=== PATIENT | female | born 1955 | race Caucasian/White ===

== ENCOUNTER → 2024-02-18 15:38 | Outpatient (REF) | payer MEDICARE, OTHER, SELFPAY | LOC: RAD 15:38 | PROVIDERS: ATTENDING PHYSICIAN Nurse Practitioner | DX: M54.50 Low back pain, unspecified (principal) | CPT/HCPCS: 72110 ==

== ENCOUNTER → 2024-03-26 19:03 | Outpatient (REF) | payer MEDICARE, OTHER, SELFPAY | LOC: MRI 19:03 | PROVIDERS: ATTENDING PHYSICIAN Family Medicine | DX: R42 Dizziness and giddiness (principal); R26.89 Other abnormalities of gait and mobility | CPT/HCPCS: 70551 ==

== ENCOUNTER → 2024-06-10 10:57 | Outpatient (REF) | payer MEDICARE, OTHER, SELFPAY | LOC: RCS 10:57 | PROVIDERS: ATTENDING PHYSICIAN Family Medicine; FAMILY PHYSICIAN Internal Medicine; REFERRING PHYSICIAN Internal Medicine Cardiovascular Disease | DX: R00.2 Palpitations (principal) | CPT/HCPCS: 93225; 93226 ==

== ENCOUNTER → 2024-07-01 15:26 | Outpatient (REF) | payer MEDICARE, OTHER, SELFPAY | LOC: PAVMRI 15:26 | PROVIDERS: ATTENDING PHYSICIAN Family Medicine; OTHER PHYSICIAN Internal Medicine; OTHER PHYSICIAN Neurological Surgery | DX: M54.41 Lumbago with sciatica, right side (principal) | CPT/HCPCS: 72148 ==

== ENCOUNTER → 2024-08-06 10:18 | Outpatient (REF) | payer MEDICARE, OTHER, SELFPAY | LOC: RAD 10:18 | PROVIDERS: ATTENDING PHYSICIAN Internal Medicine | DX: N28.1 Cyst of kidney, acquired (principal) | CPT/HCPCS: 76770 ==

== ENCOUNTER → 2024-10-05 17:02 | Outpatient (REF) | payer MEDICARE, OTHER, SELFPAY | LOC: PAVMRI 17:02 | PROVIDERS: ATTENDING PHYSICIAN Neurological Surgery; FAMILY PHYSICIAN Internal Medicine; REFERRING PHYSICIAN Internal Medicine Cardiovascular Disease | DX: R29.898 Other symptoms and signs involving the musculoskeletal system (principal) | CPT/HCPCS: 72146 ==

== ENCOUNTER → 2024-10-21 17:44 | Outpatient (REF) | payer MEDICARE, OTHER, SELFPAY | LOC: PAVMRI 17:44 | PROVIDERS: ATTENDING PHYSICIAN Neurological Surgery; FAMILY PHYSICIAN Internal Medicine | DX: R29.898 Other symptoms and signs involving the musculoskeletal system (principal) | CPT/HCPCS: 72141 ==

== ENCOUNTER → 2024-11-03 11:28 | Outpatient (REF) | payer MEDICARE, OTHER, SELFPAY | LOC: RAD 11:28 | PROVIDERS: ATTENDING PHYSICIAN Podiatrist Foot & Ankle Surgery; FAMILY PHYSICIAN Internal Medicine | DX: M14.671 Charcot's joint, right ankle and foot (principal) | CPT/HCPCS: 73630 ==

== ENCOUNTER → 2024-11-08 18:20 | Outpatient (REF) | payer MEDICARE, OTHER, SELFPAY | LOC: MRI 18:20 | PROVIDERS: ATTENDING PHYSICIAN Podiatrist; FAMILY PHYSICIAN Internal Medicine | DX: M14.672 Charcot's joint, left ankle and foot (principal) | CPT/HCPCS: 73718; 73721 ==

== ENCOUNTER → 2024-11-17 11:00 | Outpatient (REF) | payer MEDICARE, OTHER, SELFPAY | LOC: DHSLP 11:00 | PROVIDERS: ATTENDING PHYSICIAN Internal Medicine Critical Care Medicine; FAMILY PHYSICIAN Internal Medicine | DX: G47.30 Sleep apnea, unspecified (principal); R06.83 Snoring | CPT/HCPCS: 95800 ==

== ENCOUNTER → 2024-12-08 11:39 | Outpatient (REF) | payer MEDICARE, OTHER, SELFPAY | LOC: RAD 11:39 | PROVIDERS: ATTENDING PHYSICIAN Podiatrist Foot & Ankle Surgery; FAMILY PHYSICIAN Internal Medicine; REFERRING PHYSICIAN Podiatrist | DX: M79.671 Pain in right foot (principal) | CPT/HCPCS: 73630 ==

== ENCOUNTER → 2025-01-18 13:00 | Outpatient (REF) | payer MEDICARE, OTHER, SELFPAY ==
--- NOTE | 2025-01-18 14:00 | CARDSERVLU ---
Echocardiogram with Lumason completed after protocol screening completed. Allergies verified.
Patent IV site: __Rt AC_
IV site flushed with 0.9% NaCl pre and post administration.
Diluted bolus method utilized to enhance visualization of ventricular marrero.
Total volume given: __4.0 mL
Patient tolerated all procedures well without complications.
#22 kay placed Rt AC. Lumason given. INT d/c'd. dsg applied. No bleeding noted.
== END ==
LOC: RCS 13:00
PROVIDERS: ATTENDING PHYSICIAN Internal Medicine Cardiovascular Disease; FAMILY PHYSICIAN Internal Medicine
DX: R06.09 Other forms of dyspnea (principal)
CPT/HCPCS: 93306; Q9950

== ENCOUNTER → 2025-01-21 11:40 | Outpatient (REF) | payer MEDICARE, OTHER, SELFPAY | LOC: WDC 11:40 | PROVIDERS: ATTENDING PHYSICIAN Internal Medicine | DX: Z12.31 Encounter for screening mammogram for malignant neoplasm of breast (principal) | CPT/HCPCS: 77063; 77067 ==

== ENCOUNTER → 2025-02-09 14:33 | Outpatient (REF) | payer MEDICARE, OTHER, SELFPAY | LOC: DHSLP 14:33 | PROVIDERS: ATTENDING PHYSICIAN Internal Medicine Critical Care Medicine; FAMILY PHYSICIAN Internal Medicine | DX: G47.33 Obstructive sleep apnea (adult) (pediatric) (principal); R09.02 Hypoxemia | CPT/HCPCS: 95810 ==

== ENCOUNTER → 2025-02-10 13:21 | Outpatient (REF) | payer MEDICARE, OTHER, SELFPAY | LOC: RAD 13:21 | PROVIDERS: ATTENDING PHYSICIAN Internal Medicine | DX: M25.511 Pain in right shoulder (principal); Z98.890 Other specified postprocedural states | CPT/HCPCS: 73030; 73060 ==

== ENCOUNTER → 2025-03-29 14:38 | Outpatient (REF) | payer MEDICARE, OTHER, SELFPAY | LOC: RAD 14:38 | PROVIDERS: ATTENDING PHYSICIAN Podiatrist Foot & Ankle Surgery; FAMILY PHYSICIAN Internal Medicine | DX: S92.401A Displaced unspecified fracture of right great toe, initial encounter for closed fracture (principal); M14.671 Charcot's joint, right ankle and foot; E11.621 Type 2 diabetes mellitus with foot ulcer; L97.529 Non-pressure chronic ulcer of other part of left foot with unspecified severity; M14.672 Charcot's joint, left ankle and foot; M20.12 Hallux valgus (acquired), left foot; M20.32 Hallux varus (acquired), left foot | CPT/HCPCS: 73630 ==

== ENCOUNTER → 2025-05-16 13:14 | Outpatient (REF) | payer MEDICARE, OTHER, SELFPAY | LOC: EMG 13:14 | PROVIDERS: ATTENDING PHYSICIAN Neurological Surgery; FAMILY PHYSICIAN Internal Medicine | DX: R29.898 Other symptoms and signs involving the musculoskeletal system (principal); R20.0 Anesthesia of skin | CPT/HCPCS: 95886; 95913 ==

== ENCOUNTER 2025-07-04 07:54 | Inpatient (IN) | payer MEDICARE, OTHER, SELFPAY ==
[2025-07-03 12:03] VITALS: BP 177/98
[2025-07-03 13:26] VITALS: BMI 41.4
[2025-07-03 13:44] LABS: Hematocrit 37.7 % (37.0-47.0); Hemoglobin 12.5 g/dL (12.0-16.0); Mean Corp Hgb Conc. 33.2 g/dL (33.0-37.0); Mean Corpuscular Volume 83.4 fL (81.0-99.0); Nucleated Red Blood Cells % 0 %; Platelet Count 235 10^3/uL (130-400); Red Cell Dist. Width 15.2 % (11.5-14.5)
[2025-07-03 14:00] VITALS: BP 187/86
[2025-07-03 14:08] LABS: ALT (SGPT) 26 U/L (0-35); AST (SGOT) 31 U/L (14-36); Albumin 4.2 g/dl (3.5-5.0); Alkaline Phosphatase 94 U/L (38-126); Blood Urea Nitrogen 6 mg/dl (7-17); Calcium 9.6 mg/dl (8.4-10.2); Carbon Dioxide 30 mmol/L (22-30); Chloride 104 mmol/L (98-107); Estimated Creatinine Clearance 108 ml/min; Glucose 101 mg/dl (70-99); Potassium 4.3 mmol/L (3.5-5.1); Sodium 140 mmol/L (135-145); Total Protein 6.9 g/dl (6.3-8.2); eGFR > 60.00
--- NOTE | 2025-07-03 14:11 | ED.GENMED ---
History of Present Illness
General
Chief Complaint: Skin Problem
Source: patient
Time Seen by Provider: 07/03/25 13:25
History of Present Illness
History of Present Illness:
Note:
CHIEF COMPLAINT(S)
Left foot pain and blister formation.
HISTORY OF PRESENT ILLNESS
The patient is a 70-year-old female with a history of diabetes who presents with concerns regarding her left foot. She had reconstructive surgery on the foot and ankle, including correction of hammertoes and removal of a callus, performed by
Shannon, with a surgery date of February 22. The patient reports persistent issues with the alignment of her toe, causing it to rub against her footwear, leading to recurrent blisters and callus formation. Last night, she visited urgent care where a
physician expressed concerns about a potential water blister, attempting to express fluid. The underlying issue seems aggravated by the way the patient walks, which sustains the toes down position. Dr. Ortega advised her to visit the emergency room
due to the risk of infection given her diabetic status. She notes past management of similar toe issues involved cleansing and application of ointments.
PAST MEDICAL AND SURGICAL HISTORY
The patient has a history of diabetes and underwent foot and ankle reconstructive surgery on the left side, including hammertoe correction and callus removal.
CHRONIC MEDICAL CONDITIONS SIGNIFICANTLY AFFECTING CARE
- Diabetes mellitus
SOCIAL DETERMINANTS AFFECTING HEALTH
The patient experiences challenges related to healthcare access, having to consider traveling to [place] for follow-up with her surgeon, Dr. Garcia, whom she will not see until August.
ALLERGIES
Neurontin and latex.
MEDICATIONS
- Metformin: twice daily
- Trulicity: once a week
- Gabapentin: taken at night for neuropathy
REVIEW OF SYSTEMS
- Integumentary: Presence of callus and blister on the left foot.
- Musculoskeletal: Issues related to toe alignment post-surgery.
- Endocrine: Managed diabetes mellitus.
PHYSICAL EXAM
General: Alert, no acute distress.
Skin: Warm, dry. Ecchymotic changes around the callus and the distal end of the 1st digit on the L foot, with a small amount of redness. Small skin ulcer distal aspect of the left first digit.
Head: Normocephalic, atraumatic.
Neck: Supple, trachea midline.
Eyes, Ears, Nose, Mouth and Throat: Oral mucosa moist.
Cardiovascular: Normal peripheral perfusion, no edema.
Respiratory: Respirations non-labored.
Gastrointestinal: Abdomen nondistended.
Back: Normal range of motion, normal alignment.
Musculoskeletal: Normal range of motion, normal strength.
Neurological: Alert and oriented to person, place, time, and situation. No focal deficit noted.
Psychiatric: Cooperative, appropriate mood and affect.
PROBLEM LIST
Acute Problems:
- Left foot blister and ulcer
- Potential infection risk due to diabetes
Chronic Problems:
- Diabetes mellitus
PLAN
- Initiate antibiotics due to potential infection of the left foot.
- Evaluate perfusion and monitor for signs of worsening infection.
- Follow up with [facility] hospice for potential further surgical correction or ongoing management.
DIFFERENTIAL DIAGNOSIS
The Differential Diagnosis includes, in no particular order and is not limited to:
1. Diabetic foot ulcer
2. Localized soft tissue infection (cellulitis)
3. Peripheral vascular disease
4. Neuropathy-related ulceration
5. Callus-related blister formation
6. Foot deformity-related skin breakdown
7. Hammertoe-related irritation
8. Osteomyelitis
9. Chronic calcaneal bursitis
10. Tinea pedis (athlete�s foot) with secondary infection
Past History
Past History
ED Past Medical History: Arrthythmia (SVT,), HTN, Hypercholesterolemia, NIDDM and Other (Diverticulitis, Bilateral fractured arms)
ED Past Surgical History: Cardiac (Ablation) and Other (Back surgery)
Social History
Tobacco: Former smoker
Alcohol: Occasional
Personal:
Living: alone
Phy Exam
Physical Exam
Physical Exam:
.
Course
Orders/Labs/Results
Orders:
Orders
07/03/25 13:33
Complete Blood Count/With Diff Urgent
Comprehensive Metabolic Panel Urgent
Lactic Acid Urgent
07/03/25 14:11
CR Foot - Left Min 3 Views Urgent
Comment:
Reason For Exam: great toe wound
07/03/25 14:25
Cefepime HCl [Maxipime] 1,000 mg IV NOW STA
Vancomycin [Vancocin] 2,000 mg 0.9% Sodium Chloride 500 ml [Nss] 500 ml IV NOW
Abnormal Lab Results
07/03/25
13:33
RDW 15.2 H %
(11.5-14.5)
Abs Immat Gran (auto) 0.1 H 10^3/uL
(0-0.05)
Absolute Lymphs (auto) 1.0 L 10^3/uL
(1.2-3.4)
Immature Gran % 0.8 H %
(0-0.5)
Lymphocytes % 17.0 L %
(20.5-51.1)
BUN 6 L mg/dl
(7-17)
Creatinine 0.5 L mg/dL
(0.6-1.0)
Glucose 101 H mg/dl
(70-99)
Lactic Acid 2.1 H mmol/L
(0.7-2.0)
07/03/25 13:33
07/03/25 13:33
Vital Signs
Initial and Last Documented VS:
Initial Vital Signs
Temp Pulse Resp BP Pulse Ox
98.7 F 87 18 177/98 95
07/03/25 12:03 07/03/25 12:03 07/03/25 12:03 07/03/25 12:03 07/03/25 12:03
Last Documented Vital Signs
Temp Pulse Resp BP Pulse Ox
98.7 F 87 18 177/98 95
07/03/25 12:03 07/03/25 12:03 07/03/25 12:03 07/03/25 12:03 07/03/25 14:11
MDM/Problems Addressed
Chronic conditions affecting care: DM
*Pulse Oximetry
SaO2: 95
Oxygen Mode of Delivery: Room air
Patient hypoxic: no
*Sucker Machine Operator Interpretation
Rate: normal
Interpretation: normal
Rhythm: sinus
*Critical Care Note
Total Time (30-74mins, 75-104mins- exclusive of procedures): Not Applicable
Data Reviewed
Source: patient
Patient Management
Discussion with other providers: Hospitalist and Viscera Washer (Case discussed with podiatry Dr. Ortega, agrees with IV antibiotics and admission)
Escalation/DeEscalation of care consider admission/obs:
70-year-old diabetic with foot wound with some redness question infection versus poorly healing wound. Needs IV antibiotics at this point and podiatry evaluation. Admit
ED Attending Note
-
Portions of this chart may have been created with voice recognition software.� Occasional wrong word or��sound alike� substitutions may have occurred due to the inherent limitations of voice recognition software.
Discharge Plan
Departure
Patient Disposition: Admit
Date of Disposition: 07/03/25
Time of Disposition: 14:11
Admit to: Med/Surg
Presentation/result/management discussed w/ accepting MD/DO: Hospitalist
Discharge Problem:
diabetic foot wound, Diabetic foot infection
Prescriptions:
No Action
losartan 50 MG tablet
50 mg PO DAILY
torsemide 20 MG tablet
20 mg PO DAILY
atenolol 25 MG tablet
25 mg PO DAILY
allopurinol 100 MG tablet
100 mg PO DAILY
potassium chloride [Klor-Con] 20 MEQ packet
20 meq PO QPM
alprazolam 0.25 MG tablet
0.25 mg PO BID
metformin 500 MG tablet extended release 24 hr
500 mg PO QPM
levothyroxine 112 MCG tablet
112 mcg PO DAILY
rosuvastatin 10 MG tablet
10 mg PO QPM
duloxetine 60 MG capsule,delayed release(DR/EC)
60 mg PO DAILY
Pepto-Bismol 262 mg Tablet
2 tab PO Q4H PRN (Reason: GERD)
Visbiome 112.5 billion cell Capsule
1 cap PO QPM
Referrals:
Larry Kan MD [Family Provider, Internal Medicine]
Interventions
Interventions:
*Risk Screen - Suicide Last Done: 07/03/25 12:06
*General Assessment Last Done: 07/03/25 12:06
*Neglect/Abuse Screening Last Done: 07/03/25 12:06
*ED- Fall Risk Assessment Last Done: 07/03/25 13:27
*ED COVID-19 Vaccine History Last Done: 07/03/25 12:06
ED-Skin Assessment Last Done: 07/03/25 13:28
Discharge Date and Time
Print Language: SINHALA
[2025-07-03] MEDS: MAXIPIME 1000 MG IV (15:21)
[2025-07-03] MEDS: VANCOCIN 540 MG IV (15:22)
--- NOTE | 2025-07-03 16:01 | HPS.HSE ---
Family Physician
-
Family Physician: Larry Kan
Chief Complaint
-
Open wound to the left big toe.
History of Present Illness
Pleasant 70-year-old female with history of diabetes, diabetic foot infection and multiple surgeries in the both foot, gout, anxiety and mood disorder, hypertension presented to the hospital complaining of the painful open wound to the tip of the
left big toe, this going on for some time, look like he has been following up with the podiatry and said anything any shoes that you were is trigger and aggravated his pain and wound, did any purulent discharge any fever or chill or cough or
congestion pain is worse when she tried to to walk, denies any urinary or GI symptoms or any cough or congestion any weakness or numbness in extremity or any headache or vision change.
X-ray showed no evidence of osteomyelitis but clearly there is some degree of infection.
She is awake, alert and oriented x 3 and hold appropriate conversations.
Medical History
Past Medical History
Past Medical History: Reports Other
Additional Past Medical History:
Past medical history:
Diabetes mellitus:
Hypothyroidism
Dyslipidemia
Osteoarthritis
Diverticulitis
Hypertension
Fatty liver
SVT
Peripheral neuropathy
Sleep apnea on CPAP
Tremor
Surgical history:
Cardiac ablation for SVT
Bunionectomy
Back surgery
Left eye cataract
Reconstructive right foot and ankle surgery
Social history: Lives at home with the family independently, denies smoking quit 25 years ago and occasionally drinks alcohol and no drug and she is independent.
Family history: Positive for diabetes, hypertension, coronary disease and stroke
Past Surgical History: Reports Other
Social History
Unable to obtain full social history at this time due to: Other
Family History
Family History: Other
Allergies / Home Medications
Allergies reflects when Allergies were last updated in [employer].
Home Medications with original date entered in [employer]
Allergy/Medication List:
Allergies
Allergy/AdvReac Type Severity Reaction Status Date / Time
albuterol (From Proventil Allergy Unknown Verified 07/03/25 12:05
HFA)
gabapentin (From Neurontin) Allergy Rash Verified 07/03/25 12:05
latex Allergy Rash Verified 07/03/25 12:05
Home Medications
allopurinol 100 mg tablet 100 mg PO DAILY Gout 10/25/19
alprazolam 0.25 mg tablet 0.25 mg PO DAILY Mental Health/Anxiety 10/25/19
duloxetine 60 mg capsule,delayed release 60 mg PO DAILY Mental Health/Anxiety 10/25/19
potassium chloride 20 mEq oral packet (Klor-Con) 20 meq PO BID Electrolyte Repletion 10/25/19
rosuvastatin 10 mg tablet 10 mg PO QPM High cholesterol 10/25/19
torsemide 20 mg tablet 20 mg PO DAILY Fluid retention/Swelling 10/25/19
Lactobac no.2-Bifidobac no.1-S. thermo 112.5 billion cell capsule (Visbiome) 1 cap PO QPM Supplement 12/21/22
acetaminophen 325 mg tablet (Tylenol) 650 mg PO Q6HPRN PRN headaches 07/03/25
alprazolam 0.25 mg tablet (Xanax) 0.25 mg PO DAILYPRN PRN anixety 07/03/25
cephalexin 500 mg capsule 500 mg PO Q8H 07/03/25
diltiazem HCl 120 mg capsule,24 hr,extended release 240 mg PO DAILY 07/03/25
metformin 500 mg tablet 500 mg PO BID 07/03/25
pregabalin 50 mg capsule (Lyrica) 50 mg PO HS 07/03/25
therapeutic multivitamin 1 tab PO QPM 07/03/25
Review of Systems
-
A 12 point ROS was completed and negative except as noted: Yes
Physical Exam
Vital Signs
Vital Signs
Temp Pulse Resp BP Pulse Ox
98.7 F 87 18 177/98 95
07/03/25 12:03 07/03/25 12:03 07/03/25 12:03 07/03/25 12:03 07/03/25 14:11
Physical exam:
General: Awake, alert and oriented x3, not in distress and holds appropriate conversation overweight.
HEENT: No active discharge, ecchymosis or bruising, moist lips, tongue and mucous membrane.
Eyes: No discharge or red conjunctiva, no nystagmus, pupils are reactive and equal
Neck:Supple, no JVD no bruit no goiter.
Respiratory: Normal AP contour and diameter, normal chest wall movement, normal respiratory effort, no respiratory distress,
Lungs: Good air entry bilaterally, no wheezing or rhonchi, no rales or crackles
Heart: S1, S2 regular, normal rate, no added sound.
Gastrointestinal: Positive bowel sounds, soft, nontender, no guarding or rigidity or organomegaly
Musculoskeletal: Open wound at the tip of the left big toe with some redness around it, and some crust station and cover to the small black eschar, good dorsalis pedis pulse, good capillary refill, scar on the ventral aspect of the right foot, no
chest wall abnormality or tenderness.
Extremities: No pitting edema, good peripheral pulses, good range of motion
Skin: Warm and dry, no ulceration, normal color.
Neurological: Awake, alert and oriented x3, no facial droop, moves extremities freely speech clear and comprehensive, good muscle tone,
Psychiatric: Normal mood, normal thought and judgment, normal affect,
Physical Exam
General: Other
Laboratory Results
-
07/03/25 13:33
07/03/25 13:33
Laboratory Results
Lactic Acid 2.1 mmol/L (0.7-2.0) H 07/03/25 13:33
Total Bilirubin 0.6 mg/dl (0.2-1.3) 07/03/25 13:33
AST 31 U/L (14-36) 07/03/25 13:33
ALT 26 U/L (0-35) 07/03/25 13:33
Alkaline Phosphatase 94 U/L (38-126) 07/03/25 13:33
Left foot x-ray:No acute osseous abnormality.
Stable appearance of the surgical fusion hardware across the first metatarsophalangeal joint.
Severe degenerative changes of the midfoot and interphalangeal joints of the second through fifth toes, similar to prior.
Data Reviewed
-
Diagnostic Radiology: Image Personally Visualized and interpreted and Discussed with Patient
Lab Data: Labs Reviewed by me and Discussed with Family
Old Records: Reviewed
Impression/Plan
-
IMPRESSION:
70-year-old female with history of diabetes, hypertension and SVT presented to the hospital complaining of the open wound on the tip of the left toe triggered by rubbing against her shoe.
Diabetic left big toe infection
- Podiatry consult
[employer] with Vanco and cefepime
For further workup to
Workups including x-rays reviewed no evidence osteomyelitis
Monitor blood sugar
Diabetes mellitus:
Glucose
Hold metformin as she takes Ozempic at home Friday night she is at 2 mg
History of SVT status post ablation:
Patient admits lately she feeling some palpitation but nothing in the monitor for now we will put her on a index editor and if any abnormality or other issue detected will consult cardiology.
Mood disorder
Continue duloxetine.
All discussed with patient in detail expressed understanding
CODE STATUS of full code
[2025-07-03 16:45] VITALS: BP 155/86
[2025-07-03 17:19] LABS: Glucose - Point of Care 98 mg/dl (70-99)
--- NOTE | 2025-07-03 17:33 | PHA.VAN.IN ---
Assessment
- Assessment
Renal Function: Appears similar to baseline
Maximum Temperature: 98.7
Minimum Temperature: 97.7
Concomitant Antimicrobials: Cefepime 2 gram IV q8h
AUC Dosing Plan
- Dosing Variables
Dosing Weight (kg): 109.2
Dosing CrCl (ml/min): 108
Vd coefficient (L/kg): 0.6
- Empiric Dosing
Initial / Loading Dose: Vancomycin 2 gram
Maintenance Regimen: Vancomycin 1 gram IV q8h
Estimated AUC (mcg*h/mL): 521
Estimated Peak (mcg*h/mL): 28.9
Estimated Trough (mcg/ml): 15.7
Estimated Half Life (H): 7.4
- Monitoring
No levels ordered at this time: Consider level in a few days
Pharmacokinetics Vancomycin I
- -
Patient Age: 70
Patient Sex: Female
Vancomycin Day #: 1
Indication: Diabetic Foot
Requesting Provider: KEEGAN [place]
Pertinent Antimicrobial Allergies:
None
Height / Weight:
Height 5 ft 4 in
Actual Weight 109.2 kg
Pertinent Past Medical History: BMI: 41.3
- Vital Signs / Lab Results
Temp Pulse Resp BP Pulse Ox
97.7 F 81 16 155/86 96
07/03/25 16:45 07/03/25 16:45 07/03/25 16:45 07/03/25 16:45 07/03/25 16:45
Lab Results - Hematology
07/03/25
13:33
WBC 6.1
Lab Results - Chemistry
07/03/25
13:33
BUN 6 L
Creatinine 0.5 L
Estimated Creat Clear 108
Albumin 4.2
07/03/25
13:33
Lactic Acid 2.1 H
[2025-07-03] MEDS: THERAGRAN 1 TABLET PO (18:39)
[2025-07-03] MEDS: CRESTOR 10 MG PO (18:39)
[2025-07-03] MEDS: LOVENOX 40 MG SC (18:39)
[2025-07-03] MEDS: TYLENOL 650 MG PO (19:26)
[2025-07-03 19:44] VITALS: BP 173/77
[2025-07-03] MEDS: KLOR-CON 20 MEQ PO (19:58)
[2025-07-03 20:29] VITALS: BP 154/72
[2025-07-03] MEDS: VANCOCIN 200 IV (21:05)
[2025-07-03] MEDS: LYRICA 50 MG PO (21:09)
[2025-07-03] MEDS: XANAX 0.25 MG PO (21:09)
[2025-07-03 21:37] LABS: Glucose - Point of Care 112 mg/dl (70-99)
[2025-07-03] MEDS: STERILE WATER FOR INJECTION 10 ML IV (22:31)
[2025-07-03] MEDS: MAXIPIME 2000 MG IV (22:31)
[2025-07-03 22:42] VITALS: BP 133/77
[2025-07-04] VITALS (7 sets, daily range): BP systolic 125–159; BP diastolic 64–77; BMI 40.4
[2025-07-04] MEDS: VANCOCIN 200 IV ×3 (06:16→21:48)
[2025-07-04] MEDS: MAXIPIME 2000 MG IV ×3 (06:17→23:54)
[2025-07-04] MEDS: STERILE WATER FOR INJECTION 10 ML IV ×3 (06:17→23:52)
--- NOTE | 2025-07-04 07:37 | WOUNDNOTE ---
WOC RN note: Confirmed with Dr. Parra to cancel WOC RN consult. Podiatry to manage foot wound. Please contact refresh technician with questions regarding foot wound care.
[2025-07-04 08:14] LABS: Glucose - Point of Care 102 mg/dl (70-99)
[2025-07-04] MEDS: DEMADEX 20 MG PO (08:27)
[2025-07-04] MEDS: TYLENOL 650 MG PO ×2 (08:27→20:20)
[2025-07-04] MEDS: CARDIZEM CD 240 MG PO (08:27)
[2025-07-04] MEDS: XANAX 0.25 MG PO (08:28)
[2025-07-04] MEDS: KLOR-CON 20 MEQ PO ×2 (08:28→20:20)
[2025-07-04] MEDS: ZYLOPRIM 100 MG PO (08:28)
[2025-07-04] MEDS: CYMBALTA DELAYED RELEASE 60 MG PO (08:28)
[2025-07-04 09:25] LABS: Hematocrit 39.0 % (37.0-47.0); Hemoglobin 12.8 g/dL (12.0-16.0); Mean Corp Hgb Conc. 32.8 g/dL (33.0-37.0); Mean Corpuscular Volume 86.3 fL (81.0-99.0); Platelet Count 224 10^3/uL (130-400); Red Cell Dist. Width 15.3 % (11.5-14.5)
--- NOTE | 2025-07-04 09:40 | PTCARENOTE ---
Pt c/o sharp, shooting pain down L thigh. Pt stated, 'it started this morning when I was doing my leg exercises, I have never had that before'. MD made aware.
[2025-07-04 09:56] LABS: Glycohemoglobin (HgbA1c) 5.9 % (4.0-5.6)
[2025-07-04 10:00] LABS: Blood Urea Nitrogen 7 mg/dl (7-17); Calcium 9.3 mg/dl (8.4-10.2); Carbon Dioxide 29 mmol/L (22-30); Chloride 106 mmol/L (98-107); Estimated Creatinine Clearance 107 ml/min; Glucose 112 mg/dl (70-99); Potassium 4.0 mmol/L (3.5-5.1); Sodium 141 mmol/L (135-145); eGFR > 60.00
--- NOTE | 2025-07-04 10:35 | W.PN.HOSP.TC ---
Today's Communication/Plan
-
Continue with empirical antibiotics. Obtain wound cultures and MRSA screen
Follow portfolio administrator recommendations
Assessment / Plan
Assessment / Plan
IMPRESSION:
70-year-old female with history of diabetes, hypertension and SVT presented to the hospital complaining of the open wound on the tip of the left toe triggered by rubbing against her shoe.
Diabetic left big toe infection
Failed outpatient treatment-patient was on cephalexin. No systemic toxicity or sepsis.
- Podiatry consult
[employer] with Vanco and cefepime. Check wound cultures and as well as MRSA screen
Workups including x-rays reviewed no evidence osteomyelitis
Monitor blood sugar
Diabetes mellitus:
Glucose
Hold metformin as she takes Ozempic at home Friday night she is at 2 mg
Hemoglobin A1c 5.9
History of SVT status post ablation:
Continue to follow telemetry
Primary hypertension
Continue with hydralazine
Mood disorder
Continue duloxetine.
All discussed with patient in detail expressed understanding
CODE STATUS of full code
Anticipated Discharge: > 48 hours
Subjective/Interval History
-
Date of Service: July 04, 2025
No fever or chills.
No nausea vomiting.
Not much pain from the left toe today.
Experiences some mild anterior left thigh pain today.
Objective Data
-
Labs:
Laboratory Results
07/04/25
07:25
WBC 5.7
Hgb 12.8
Hct 39.0
Plt Count 224
Sodium 141
Potassium 4.0
Chloride 106
Carbon Dioxide 29
BUN 7
Creatinine 0.5 L
Glucose 112 H
Calcium 9.3
Vital Signs:
Vital Signs
Temp Pulse Resp BP Pulse Ox
97.6 F 77 18 159/77 96
07/04/25 07:00 07/04/25 08:27 07/04/25 07:00 07/04/25 08:27 07/04/25 07:00
I&O
07/03/25 07/04/25 07/05/25
06:59 06:59 06:59
Intake Total 836 / 836
Balance 836 / 836
Physical Exam
-
General: Comfortable
Respiratory: Clear to Auscultation and Non Labored Respirations; Negative Accessory Resp Muscle Use
Cardiac: Regular Rhythm and S1/S2; Negative Murmur or Tachycardic
GI: Soft
Skin: Other (left big toe with chronic wound at the tip with surrounding redness and mild swelling)
Neuro: AO x 3
Psych: Calm; Negative Confused
Data Reviewed
-
Labs: Labs Reviewed by me
[2025-07-04 12:03] LABS: Glucose - Point of Care 127 mg/dl (70-99)
--- NOTE | 2025-07-04 13:08 | W.CS.POD ---
Consult Summary - Podiatry
-
70-year-old pleasant female seen at bedside with left big toe distal aspect callus with dry hemorrhagic blister, no pain in the toe there is no redness surrounding the blister. Patient states that she had left first MPJ fusion in February 2025 and she
is walking with the left big toe bent, she has multidensity foot inserts with modification to the big toe area still she has developed a callus, her home health caregiver admitted her for possible IV antibiotics since her oral antibiotics were not helping
after 2 days
She currently is in no acute distress denies any fever chills
Reviewed past medical history medications allergies
Left foot exam: Palpable DP and PT
Left foot no edema, left hallux distal aspect with dry callus and dried hemorrhagic blister noted, no local erythema no red streaking, no purulence no tenderness, no signs of crepitus
Left first MPJ fused
Stable left foot hammertoe correction sites
X-rays with no osteomyelitis, no osseous changes.
Assessment and plan IV antibiotics continue
I have ordered noninvasive vascular studies
No surgical intervention by podiatry, discussed with the patient about readjusting her left foot inserts to help further alleviate the pressure at the tip of the toe, will order topical mupirocin ointment to the left big toe with the dry gauze
dressings
She will follow-up with her home health caregiver after discharge
--- NOTE | 2025-07-04 13:28 | CM ---
Addendum entered by Sana Landrum 07/04/25 13:32:
tt from [facility] - LOC to inpatient
IMM explained & signed. In chart
Original Note:
Patient seen at bedside
IA completed
Dx: diabetic foot wound
Podiatry consulted
Patient lives in a 1 story home, ramp to enter
PLOF: independent, drives, Independent with ADL's
DME: Knee scooter, CPAP, Walker, cane raised toilet seat
has had vn in past, [facility] in 2022
PCP: Larry Kan
Pharmacy: [address], [place]
PLAN: Home, no needs anticipated when stable, CM to continue to follow
--- NOTE | 2025-07-04 13:39 | PHA.VAN.FU ---
Vancomycin Assessment / Plan
- Assessment
Renal Function: Stable
WBC's are: WNL
In the past 24 hrs, patient has been: Afebrile
Concomitant Antimicrobials: cefepime
- Dosing Plan
Adjust Regimen to: Vanc 1500mg Q12H starting 07/05 0600
Dosing Comments: complete 1g Q8 as load but adjust to Q12 given age
- Monitoring Plan
No level(s) ordered at this time: consider levels in next few days
- Follow Up
Pharmacy will continue to follow.
Vancomycin Follow UP
- -
Patient Age: 70
Patient Sex: Female
Vancomycin Day #: 2
Indication: Diabetic Foot
Requesting Provider: KEEGAN [place]
Pertinent Antimicrobial Allergies:
None
Height / Weight:
Height 5 ft 4 in
Actual Weight 106.679 kg
Pertinent Past Medical History: BMI: 41.3
- Vital Signs / Lab Results
Temp Pulse Resp BP Pulse Ox
98.1 F 84 18 125/64 98
07/04/25 11:00 07/04/25 11:00 07/04/25 11:00 07/04/25 11:00 07/04/25 11:00
Lab Results - Hematology
07/03/25 07/04/25
13:33 07:25
WBC 6.1 5.7
Lab Results - Chemistry
07/03/25 07/04/25
13:33 07:25
BUN 6 L 7
Creatinine 0.5 L 0.5 L
Estimated Creat Clear 108 107
Albumin 4.2
07/03/25
13:33
Lactic Acid 2.1 H
[2025-07-04 17:02] LABS: Glucose - Point of Care 99 mg/dl (70-99)
[2025-07-04] MEDS: LOVENOX 40 MG SC (17:46)
[2025-07-04] MEDS: CRESTOR 10 MG PO (17:47)
[2025-07-04] MEDS: BACTROBAN 2% OINTMENT 1 APPLIC TOPICAL (17:47)
[2025-07-04] MEDS: THERAGRAN 1 TABLET PO (17:47)
[2025-07-04 21:35] LABS: Glucose - Point of Care 112 mg/dl (70-99)
[2025-07-04] MEDS: LYRICA 50 MG PO (21:49)
--- NOTE | 2025-07-04 23:41 | W.PN.UPDATE ---
Update Note
Progress Note Update
RN reports patient c/o headache and blur vision. Patient seen and evaluated. Patient is AAOx3, reports she has been having blur vision for last three months in both eyes. She feels as if there's a 'cloud' around the TV and even around this TURNTABLE ENGINEER's
face. She says it usually occurs after long screen time. States headache has resolved, but she says her mother after having stroke and she would like to have this blurred vision checked out since she is in the hospital. She denies any
headache, nausea, pain in her eyes. Hx of Cataract surgery 5 years ago, seen an manager hris 5 months ago and she did not have this issue that time. She is unable to read at this time as she uses reading glasses which she left at home.
GCS 15
NIH 1 partial hemianopia
likely due to Diabetic Retinopathy? TIA? Cataracts
CT head pending
May need consult with neurologist
stable VS at present
[2025-07-05] VITALS (7 sets, daily range): BP systolic 129–161; BP diastolic 70–79; PULSE 79; BMI 40.5
--- NOTE | 2025-07-05 02:58 | PTCARENOTE ---
Pt complaining of blurred vision and headache. Pt states she had cataract surgery 3 years ago and has had some blurred vision since but worsening over the last 3 months. She is concerned about a stroke as her mother from one. The
headache started 07/04 early afternoon and had been mildly relieved with Tylenol. STATOR WINDER notified and head CT ordered.
[2025-07-05] MEDS: VANCOCIN 530 MG IV ×2 (05:41→17:01)
[2025-07-05] MEDS: TYLENOL 650 MG PO ×3 (05:59→23:24)
[2025-07-05] MEDS: ZYLOPRIM 100 MG PO (08:08)
[2025-07-05] MEDS: CYMBALTA DELAYED RELEASE 60 MG PO (08:08)
[2025-07-05] MEDS: STERILE WATER FOR INJECTION 10 ML IV ×3 (08:08→22:40)
[2025-07-05] MEDS: CARDIZEM CD 240 MG PO (08:08)
[2025-07-05] MEDS: DEMADEX 20 MG PO (08:08)
[2025-07-05] MEDS: MAXIPIME 2000 MG IV ×3 (08:09→22:40)
[2025-07-05] MEDS: BACTROBAN 2% OINTMENT 1 APPLIC TOPICAL (08:09)
[2025-07-05] MEDS: KLOR-CON 20 MEQ PO ×2 (08:10→20:05)
[2025-07-05 08:11] LABS: Glucose - Point of Care 98 mg/dl (70-99)
[2025-07-05] MEDS: XANAX 0.25 MG PO (08:13)
--- NOTE | 2025-07-05 11:27 | PHA.VAN.FU ---
Vancomycin Assessment / Plan
- Assessment
Renal Function: Stable
WBC's are: WNL
In the past 24 hrs, patient has been: Afebrile
Concomitant Antimicrobials: cefepime
- Dosing Plan
Continue: Vancomycin 1500mg IV Q12h
- Monitoring Plan
No level(s) ordered at this time: consider levels in next few days
- Follow Up
Pharmacy will continue to follow.
Vancomycin Follow UP
- -
Patient Age: 70
Patient Sex: Female
Vancomycin Day #: 3
Indication: Diabetic Foot
Requesting Provider: KEEGAN [place]
Pertinent Antimicrobial Allergies:
None
Height / Weight:
Height 5 ft 4 in
Actual Weight 107.048 kg
Pertinent Past Medical History: ~BMI: 41
- Vital Signs / Lab Results
Temp Pulse Resp BP Pulse Ox
98.0 F 80 22 142/70 95
07/05/25 11:00 07/05/25 11:00 07/05/25 11:00 07/05/25 11:00 07/05/25 11:00
Lab Results - Hematology
07/03/25 07/04/25
13:33 07:25
WBC 6.1 5.7
Lab Results - Chemistry
07/03/25 07/04/25
13:33 07:25
BUN 6 L 7
Creatinine 0.5 L 0.5 L
Estimated Creat Clear 108 107
Albumin 4.2
07/03/25
13:33
Lactic Acid 2.1 H
[2025-07-05 11:53] LABS: Glucose - Point of Care 117 mg/dl (70-99)
--- NOTE | 2025-07-05 12:57 | PN.CDI ---
CDI
- -
CDI:
Physician Documentation Request
Admit Date: 07/04/25 07:54
Dear Doctor Jeronimo,
Please review the following and provide your response in the progress notes.
Clinical Indicators:
Height: 5'4
Weight: 236
BMI: 40.5
Other Clinical Notes: Machine Design Engineer note indicates morbid obesity
If possible, please provide an associated diagnosis related to the abnormal BMI, such as:
Morbid obesity due to excess calories
BMI is not significant
Other (please specify)
Use of terms such as suspected, likely, concern for, or probable (associated with a specific diagnosis that is being evaluated, monitored, or treated as if it exists) are acceptable and can be coded in the inpatient setting, when documented at the
time of discharge.
Thank you,
Nazanin Menendez RN
CDI Specialist
Please use your independent medical judgment in providing your response.
--- NOTE | 2025-07-05 15:00 | W.PN.HOSP.TC ---
Addendum entered and electronically signed by Mg Decker MD 07/13/25 12:14:
BMI 40.7
Morbid obesity due to excess calories
Original Note:
Today's Communication/Plan
-
Continue with empirical antibiotics pending culture data
Continue with wound care
Obtain left hip x-ray with pelvis
Symptomatic treatment for left thigh pain
Assessment / Plan
Assessment / Plan
IMPRESSION:
70-year-old female with history of diabetes, hypertension and SVT presented to the hospital complaining of the open wound on the tip of the left toe triggered by rubbing against her shoe.
Diabetic left big toe infection
Failed outpatient treatment-patient was on cephalexin. No systemic toxicity or sepsis.
- Podiatry input noted-no surgical recommendations at this point.
[employer] robotics with Vanco and cefepime. Check wound cultures and as well as MRSA screen
Workups including x-rays reviewed no evidence osteomyelitis
Monitor blood sugar
Diabetes mellitus:
Glucose
Hold metformin as she takes Ozempic at home Friday night she is at 2 mg
Hemoglobin A1c 5.9
Left thigh pain-sounds musculoskeletal. Will obtain an x-ray of the left hip and the pelvis and if no issues then we will treat symptomatically and if recurrent then advised her to follow-up with her spinal surgeon.
Transient intermittent visual halos around objects-chronic symptom-CT head negative for any acute findings. Nonfocal neurologically. Advised to follow-up with ophthalmology.
History of SVT status post ablation:
Continue to follow telemetry
Primary hypertension
Continue with hydralazine
Mood disorder
Continue duloxetine.
All discussed with patient in detail expressed understanding
CODE STATUS of full code
Anticipated Discharge: Within 24 hours
Subjective/Interval History
-
Date of Service: July 05, 2025
Resolved eye symptoms -patient was noticing some halos around lights after watching TV or phone for a long time and when she looks quickly away from the gadgets. It was ongoing for a while. She had a prior cataract surgery 3 years ago. The today
she does not have the experiences. Is always been intermittent. Advised patient to follow-up with ophthalmology.
She also complains of left anterior thigh pain again today and more so with ambulation and movement. Again she was experiencing that lately. She had a prior back surgery for disc disease. Had sciatica in the past. No trauma.
Due to pain she feels her leg is heavy.
She experienced sometimes the pain in the anterior right thigh as well intermittently again.
She has slight headache today.
Objective Data
-
Vital Signs:
Vital Signs
Temp Pulse Resp BP Pulse Ox
98.0 F 80 22 142/70 95
07/05/25 11:00 07/05/25 11:00 07/05/25 11:00 07/05/25 11:00 07/05/25 11:00
I&O
07/04/25 07/05/25 07/06/25
06:59 06:59 06:59
Intake Total 836 / 836 1380 / 1380
Balance 836 / 836 1380 / 1380
Physical Exam
-
General: Comfortable
Respiratory: Wheezes and Non Labored Respirations; Negative Accessory Resp Muscle Use
Cardiac: Regular Rhythm and S1/S2; Negative Tachycardic
GI: Soft
Musculoskeletal: Other (No pain on the left leg is rested. SLR test negative but when I brought the leg down she experienced some upper lateral thigh area pain. Range of motion's in left hip is okay.)
Neuro: AO x 3, No Motor Deficits and Other (Pupil equal and reactive to light. No nystagmus.); Negative Tremors, Slurred Speech or Facial Droop
Psych: Calm; Negative Confused or Agitated
Data Reviewed
-
Labs: Labs Reviewed by me
[2025-07-05] MEDS: TORADOL 15 MG IV ×2 (15:21→21:55)
[2025-07-05 17:00] LABS: Glucose - Point of Care 128 mg/dl (70-99)
[2025-07-05] MEDS: LOVENOX 40 MG SC (17:02)
[2025-07-05] MEDS: THERAGRAN 1 TABLET PO (17:02)
[2025-07-05] MEDS: CRESTOR 10 MG PO (17:02)
--- NOTE | 2025-07-05 17:23 | W.PN.POD ---
Addendum entered and electronically signed by Bella Parra DPM 07/06/25 18:37:
Addendum to the procedure : At bedside, Using #15 blade and excisional debridement of necrotic skin from Left distal hallux performed, about 2 x 3 cm x 1mm depth size of the debrided site
Original Note:
Today's Communication
Today's Communication
Patient stable per podiatry to discharge home
Assessment / Plan
-
[facility] call[facility] and noted to have clean skin, no active drainage.
Can transition to PO abx - D/W Hsop service.
Topical mupirocin to the toe daily once with dry gauze dressings discussed with patient
I have reviewed noninvasive vascular studies, no focal limiting stenosis, slightly diminished toe pressures,
Discussed with patient and her daughters over the phone
I have given script for marko for diabetic shoes and custom inserts
She will follow-up with her artist's representative after discharge
Subjective
Chief Complaint
Patient with LT big toe blister
Subjective
Patient seen at bedside, doing well, no pain in Lt big toe, no fever, chills
Objective
Temp Pulse Resp BP Pulse Ox
97.5 F 78 20 148/79 96
07/05/25 15:26 07/05/25 15:26 07/05/25 15:26 07/05/25 15:26 07/05/25 15:26
07/04/25 07:25
07/04/25 07:25
Vital Signs and Lab results were reviewed.
Left foot exam: Palpable DP and PT
Left foot no edema, left hallux distal aspect with dry callus and dried hemorrhagic blister noted, no local erythema, no red streaking, no purulence no tenderness, no signs of crepitus
Left first MPJ fused
--- NOTE | 2025-07-05 18:45 | VATNOTE ---
called to room to restart patients IV as she had a moderate size vanco infiltrate; red and pain only a '1' according to pt. Heat applied and elevated on folded pillow. IV restarted on right forearm. VAT to follow.
[2025-07-05] MEDS: BACTROBAN 2% OINTMENT TOPICAL ×2 (20:05→20:12)
[2025-07-05 21:10] LABS: Glucose - Point of Care 108 mg/dl (70-99)
[2025-07-05] MEDS: LYRICA 50 MG PO (21:55)
[2025-07-06 03:13] VITALS: BP 136/60
--- NOTE | 2025-07-06 03:17 | DOWNTIME ---
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 Downtime documentation of patient's care, including medication administrations, has been reconciled in the electronic record per guidelines. Refer to the
patient's paper chart under the miscellaneous tab to see printed paper medication records and downtime forms.
[2025-07-06] MEDS: VANCOCIN 530 MG IV (05:40)
[2025-07-06 06:55] VITALS: BMI 40.8
[2025-07-06 07:33] VITALS: BP 162/75
[2025-07-06] MEDS: CARDIZEM CD 240 MG PO (07:33)
[2025-07-06] MEDS: CYMBALTA DELAYED RELEASE 60 MG PO (07:33)
[2025-07-06] MEDS: XANAX 0.25 MG PO (07:34)
[2025-07-06] MEDS: DEMADEX 20 MG PO (07:34)
[2025-07-06] MEDS: KLOR-CON 20 MEQ PO (07:34)
[2025-07-06] MEDS: BACTROBAN 2% OINTMENT 1 APPLIC TOPICAL (07:34)
[2025-07-06] MEDS: ZYLOPRIM 100 MG PO (07:34)
[2025-07-06] MEDS: STERILE WATER FOR INJECTION 10 ML IV ×2 (07:35→14:00)
[2025-07-06] MEDS: MAXIPIME 2000 MG IV ×2 (07:35→14:00)
[2025-07-06 07:39] LABS: Glucose - Point of Care 94 mg/dl (70-99)
[2025-07-06 11:34] VITALS: BP 135/78
[2025-07-06 11:58] LABS: Glucose - Point of Care 93 mg/dl (70-99)
--- NOTE | 2025-07-06 12:22 | PHA.VAN.FU ---
Vancomycin Assessment / Plan
- Assessment
Renal Function: Stable
WBC's are: Stable
In the past 24 hrs, patient has been: Afebrile
Concomitant Antimicrobials: Cefepime
- Dosing Plan
Continue: 1500mg Q12H
- Monitoring Plan
No level(s) ordered at this time: Consider levels in next few days
- Follow Up
Pharmacy will continue to follow.
Vancomycin Follow UP
- -
Patient Age: 70
Patient Sex: Female
Vancomycin Day #: 4
Indication: Diabetic Foot
Requesting Provider: KEEGAN [place]
Pertinent Antimicrobial Allergies:
None
Height / Weight:
Height 5 ft 4 in
Actual Weight 107.637 kg
Pertinent Past Medical History: ~BMI: 41
- Vital Signs / Lab Results
Temp Pulse Resp BP Pulse Ox
98.1 F 75 16 135/78 96
07/06/25 11:34 07/06/25 11:34 07/06/25 11:34 07/06/25 11:34 07/06/25 11:34
Lab Results - Hematology
07/03/25 07/04/25
13:33 07:25
WBC 6.1 5.7
Lab Results - Chemistry
07/03/25 07/04/25
13:33 07:25
BUN 6 L 7
Creatinine 0.5 L 0.5 L
Estimated Creat Clear 108 107
Albumin 4.2
07/03/25
13:33
Lactic Acid 2.1 H
Microbiology Results
07/05/25 15:12 Wound Culture - Preliminary
Toe No growth
Gram Stain - Preliminary
07/04/25 11:36 MRSA Screen - Final
Nose No Methicillin Resistant Staphylococcus aureus isolated.
--- NOTE | 2025-07-06 12:39 | CM ---
Patient seen at bedside
IMM explained & signed. In chart
PLAN: Home, no needs when stable
drove self to hospital
--- NOTE | 2025-07-06 14:10 | W.DCSUMMARY ---
Discharge Summary
Discharge Data
Date of Admission: 07/04/25
Date of Discharge: 07/06/25
-
Pending Results: No
Hospital Course
Primary diagnosis:
Diabetic left big toe infection
Secondary diagnosis:
History of supraventricular tachycardia status post ablation
Primary hypertension
Mood disorder
Hospital course:
70-year-old female with known diabetes mellitus and Charcot's foot presented with nonhealing left big toe wound. She had prior foot surgeries for Charcot foot. She has trouble with the toes while weightbearing. She developed an ulcer which became
a wound and then was treated with antibiotics as an outpatient without improvement so presented to the hospital. She was not septic. X-ray showed no evidence of osteomyelitis. She had arterial ultrasound study which showed no PAD in the left leg.
Was seen by laboratory scientist who recommended to continue with antibiotics, wound care and follow-up as an outpatient. No indication for any any debridement. Her MRSA screen was negative. Wound culture did not show any growth. Was initially treated
with cefepime and vancomycin and after culture data was transitioned to oral cefdinir and doxycycline to complete another 5 days of antibiotics. Advised to follow with laboratory scientist as an outpatient.
During the stay here he was complaining of left thigh pain sounded musculoskeletal. Hip and pelvis x-ray shows bilateral severe arthritis. Symptomatic treatment was given and advised to follow with PCP.
Also she had a transient intermittent visual halos around objects which has been a chronic symptom. She had a CT head which showed no evidence of acute findings. She was nonfocal neurologically. She has a active ophthalmology follow-up and she
was going to make another appointment for this.
Today she feels great. No fever or chills. Not much of toe pain. No nausea vomiting. No shortness of breath. Continued left thigh pain with movement. No further visual disturbances.
She is afebrile, blood pressure 135/78, pulse 75. Chest clear. Heart sinus and pulses are regular. No tachycardia arrhythmias on the monitor.
Deemed medically stable for discharge home today.
Portions of this chart may have been created with voice recognition software. Occasional wrong word or 'sound alike' substitutions may have occurred due to the inherent limitations of voice recognition software.
Consultants on board:
Podiatry-Madelyn Limon
Discharge Plan
-
Patient Disposition: Home (Routine Discharge)
Discharge Diagnosis/Procedures: Left big toe wound infection
Diet: Low Sodium
Activity: As tolerated
Driving Restrictions: As prior to admission
Bathing Restrictions: None
Referrals:
Kiara Ortega DPM [Specified Professional Personl, Podiatry] - in less than 1 week
Larry Kan MD [Family Provider, Internal Medicine] - in less than 1 week
Prescriptions:
New
mupirocin 2 % Ointment
1 applic topical BID Qty: 15 0RF
cefdinir 300 mg capsule
300 mg PO BID Qty: 10 0RF
doxycycline hyclate 100 mg capsule
100 mg PO BID Qty: 10 0RF
Continued
torsemide 20 MG tablet
20 mg PO DAILY
allopurinol 100 MG tablet
100 mg PO DAILY
potassium chloride [Klor-Con] 20 MEQ packet
20 meq PO BID
alprazolam 0.25 MG tablet
0.25 mg PO DAILY
rosuvastatin 10 MG tablet
10 mg PO QPM
duloxetine 60 MG capsule,delayed release(DR/EC)
60 mg PO DAILY
Visbiome 112.5 billion cell Capsule
1 cap PO QPM
metformin 500 mg Tablet
500 mg PO BID
acetaminophen [Tylenol] 325 mg Tablet
650 mg PO Q6HPRN PRN (Reason: headaches)
therapeutic multivitamin Tablet
1 tab PO QPM
alprazolam [Xanax] 0.25 mg Tablet
0.25 mg PO DAILYPRN PRN (Reason: anixety)
diltiazem HCl 120 mg Capsule,Extended Release 24 Hr
240 mg PO DAILY
pregabalin [Lyrica] 50 mg Capsule
50 mg PO HS
Discontinued
cephalexin 500 mg Capsule
500 mg PO Q8H
Rx Instructions:
for 10 days starting 07/02/25
Discharge Orders:
Discharge Patient (As Directed); Ordered 07/06/25
Ordered By: Mg Decker
Discharge Date and Time
Print Language: CAMBODIAN
[2025-07-06 14:28] VITALS: BP 144/87
--- NOTE | 2025-07-06 15:06 | PTCARENOTE ---
Patient able to demonstrate wound care adequately. States that she has all of the supplies that she needs in order to complete wound care at home. Plan of care ongoing.
[2025-07-06 15:33] VITALS: BP 153/88; PULSE 88; O2SAT 97
--- NOTE | 2025-07-06 15:45 | PTOTSP ---
PATIENT INDEPENDENT WITH MOBILITY-TRANSFERS FROM BED/TOILET AND AMBULATION WITHOUT A DEVICE. WAS ABLE TO DON HER SLIPPERS WITHOUT DIFFICULTY. PATIENT PLANS TO DRIVE HERSELF HOME TODAY AND HAS NO CONCERNS REGARDING MOBILITY/SELF-CARE. WILL DISCHARGE
FROM P.T. SERVICES.
--- NOTE | 2025-07-06 16:06 | PN.CDI ---
CDI
- -
CDI:
Physician Documentation Request
Admit Date: 07/04/25 07:54
Dear Doctor Aida,
Please review the following and provide your response in the progress notes.
Clinical Indicators:
- 07/05 Podiatry note indicates debridement without further specification.
- 'At bedisde, debrided the dry callus and noted to have clean skin, no active drainage'
Could you provide, in the progress notes further clarification regarding the debridement.
Please specify the type of debridement performed:
1. Excisional Debridement - defined as removal by excision of devitalized tissue, necrosis or slough
2. Non-excisional debridement - defined as removal of devitalized tissue, necrosis or slough by such methods as irrigation, brushing, scrubbing or washing.
If the debridement was excisional, please also include:
1. Type of instrument used (#11 blade, #15 blade etc.)
2. What was excised (necrotic tissue, gangrenous tissue, slough etc.)
For excisional or non-excisional, please also include:
1. Depth of debridement (skin, subcutaneous tissue, fascia, muscle, bone etc)
2. Size and appearance of the wound (L, W, D, color of wound, drainage)
Use of terms such as suspected, likely, concern for, or probable (associated with a specific diagnosis that is being evaluated, monitored, or treated as if it exists) are acceptable and can be coded in the inpatient setting, when documented at the
time of discharge.
Thank you,
Nazanin Menendez RN
CDI Specialist
Please use your independent medical judgment in providing your response.
== END 2025-07-06 16:20 | disposition home or self-care (01) | DRG 638 ==
LOC: 3 WEST ACU 07:54
PROVIDERS: Nurse Practitioner Family; ADMITTING PHYSICIAN Internal Medicine; ATTENDING PHYSICIAN Internal Medicine; CONSULT PHYSICIAN Podiatrist Foot & Ankle Surgery; EMERGENCY PHYSICIAN Emergency Medicine; FAMILY PHYSICIAN Internal Medicine
PROC: 5A09357 Assistance with Respiratory Ventilation, Less than 24 Consecutive Hours, Continuous Positive Airway Pressure (ICD-10-PCS; 2025-07-03)
PROC: 0HBNXZZ Excision of Left Foot Skin, External Approach (ICD-10-PCS; 2025-07-05)
DX: E11.621 Type 2 diabetes mellitus with foot ulcer (principal); I96 Gangrene, not elsewhere classified; Z68.41 Body mass index [BMI] 40.0-44.9, adult; L08.9 Local infection of the skin and subcutaneous tissue, unspecified; E11.42 Type 2 diabetes mellitus with diabetic polyneuropathy; I10 Essential (primary) hypertension; F39 Unspecified mood [affective] disorder; E03.9 Hypothyroidism, unspecified; K76.0 Fatty (change of) liver, not elsewhere classified; G47.30 Sleep apnea, unspecified; E11.610 Type 2 diabetes mellitus with diabetic neuropathic arthropathy; E78.00 Pure hypercholesterolemia, unspecified; H53.19 Other subjective visual disturbances; Z79.84 Long term (current) use of oral hypoglycemic drugs; Z87.891 Personal history of nicotine dependence; F41.9 Anxiety disorder, unspecified; L97.521 Non-pressure chronic ulcer of other part of left foot limited to breakdown of skin; E66.01 Morbid (severe) obesity due to excess calories
CPT/HCPCS: 70450; 73502; 73630; 80048; 80053; 82962; 83036; 83605; 85025; 85027; 87070; 87205; 93922; 93925; 94660; 97162; 99285

== ENCOUNTER → 2025-07-07 17:15 | Outpatient (REF) | payer MEDICARE, OTHER, SELFPAY ==
[2025-07-07 18:11] LABS: C-Reactive Protein 8.30 mg/L (0.0-10.00)
== END ==
LOC: REG 17:15
PROVIDERS: ATTENDING PHYSICIAN Ophthalmology; FAMILY PHYSICIAN Internal Medicine
DX: R51.9 Headache, unspecified (principal)
CPT/HCPCS: 36415; 85652; 86140

== ENCOUNTER → 2025-07-26 14:18 | Outpatient (REF) | payer MEDICARE, OTHER, SELFPAY | LOC: REG 14:18 | PROVIDERS: ATTENDING PHYSICIAN Podiatrist Foot & Ankle Surgery; FAMILY PHYSICIAN Internal Medicine; OTHER PHYSICIAN Podiatrist | DX: M14.671 Charcot's joint, right ankle and foot (principal); E11.621 Type 2 diabetes mellitus with foot ulcer; L97.529 Non-pressure chronic ulcer of other part of left foot with unspecified severity; M14.672 Charcot's joint, left ankle and foot; M20.12 Hallux valgus (acquired), left foot; M20.32 Hallux varus (acquired), left foot; M79.671 Pain in right foot | CPT/HCPCS: 73630 ==

== ENCOUNTER → 2025-08-04 18:11 | Outpatient (REF) | payer MEDICARE, OTHER, SELFPAY | LOC: CLAB 18:11 | PROVIDERS: ATTENDING PHYSICIAN Otolaryngology | DX: H61.23 Impacted cerumen, bilateral (principal) | CPT/HCPCS: 87070; 87077 ==